=== PATIENT | male | born 1955 | race Asian ===

== ENCOUNTER 2017-06-30 09:32 | Emergency (ER) | payer OTHER ==
[~2017-06-30] VITALS: Ht 170.2 cm; Wt 74.5 kg
[2017-06-30] MEDS ORDERED: LISI-660 PO (09:46)
[2017-06-30] MEDS ORDERED: ASPI81 PO (09:46)
[2017-06-30] MEDS ORDERED: TICA90TA PO (09:46)
[2017-06-30] MEDS ORDERED: METF500T4 PO (09:46)
[2017-06-30 09:47] LABS: GLUCOSE,POINT OF CARE 128 MG/DL (70-110)
[2017-06-30 11:19] VITALS: BP 108/67
[2017-06-30 11:29] LABS: BASOPHILS % (AUTO) 1.2 % (0.0-2.0); EOSINOPHILS # (AUTO) 0.51 K/uL (0.00-0.70); EOSINOPHILS % (AUTO) 6.11 % (1.0-6.0); HEMATOCRIT 35.6 % (41-53); HEMOGLOBIN 11.8 g/dL (13.5-17.5); LYMPHOCYTES % (AUTO) 24.2 % (22.0-44.0); MEAN CORPUSCULAR VOLUME 94 fL (80-100); MONOCYTES # (AUTO) 0.7 K/uL (0.1-1.0); MONOCYTES % (AUTO) 8.3 % (2.0-9.0); NEUTROPHILS % (AUTO) 60.2 % (40.0-70.0); PLATELET COUNT (AUTO) 244 K/uL (150-450); RED BLOOD CELL COUNT(AUTO) 3.79 MIL/uL (4.50-5.90); RED CELL DISTRIBUTION WIDTH 14.2 % (11.5-14.5); WHITE BLOOD COUNT (AUTO) 8.3 K/uL (4.5-11.0)
[2017-06-30 11:38] LABS: CALCIUM, TOTAL 9.3 mg/dL (8.8-10.5); CREATININE 1.99 mg/dL (0.60-1.30); POTASSIUM 4.6 mmol/L (3.5-5.1)
[2017-06-30 11:44] LABS: ALBUMIN 3.9 g/dL (3.4-5.0); BILIRUBIN,TOTAL 0.5 mg/dL (0.1-1.0)
[2017-06-30 11:47] LABS: LACTIC ACID 0.9 mmol/L (0.4-2.0)
== END 2017-06-30 12:45 | disposition home or self-care (01) ==
LOC: EMS 09:35
DX: J06.9 Acute upper respiratory infection, unspecified (principal); E11.9 Type 2 diabetes mellitus without complications; E78.00 Pure hypercholesterolemia, unspecified; I10 Essential (primary) hypertension; F17.210 Nicotine dependence, cigarettes, uncomplicated; Z79.82 Long term (current) use of aspirin
CPT/HCPCS: 82962; 83605; 87040; 99285; 99406

== ENCOUNTER 2019-06-13 12:37 | Inpatient (IN) | payer MEDICARE, OTHER ==
[~2019-06-13] VITALS: Ht 167.6 cm; Wt 63.8 kg
[~2019-06-13 12:37] MED LIST: ASPI81 PO; LISI-660 PO; METF-960 PO; TICA90TA PO
[2019-06-13] MEDS ORDERED: [UNRECOGNIZED DRUG - REMARK] SQ (13:07)
[2019-06-13 13:09] LABS: GLUCOSE,POINT OF CARE 574 MG/DL (70-110)
[2019-06-13 14:08] LABS: BASOPHILS % (AUTO) 0.5 % (0.0-2.0); EOSINOPHILS % (AUTO) 4.3 % (1.0-6.0); HEMATOCRIT 43.2 % (41-53); HEMOGLOBIN 14.5 g/dL (13.5-17.5); LYMPHOCYTES # (AUTO) 1.7 K/uL (1.0-4.8); LYMPHOCYTES % (AUTO) 28.4 % (22.0-44.0); MEAN CORPUSCULAR HEMOGLOBIN 32.4 pg (26.0-34.0); MEAN CORPUSCULAR HGB CONC 33.5 G/dL (31.0-37.0); MEAN CORPUSCULAR VOLUME 97 fL (80-100); MONOCYTES # (AUTO) 0.7 K/uL (0.1-1.0); MONOCYTES % (AUTO) 11.5 % (2.0-9.0); NEUTROPHILS # (AUTO) 3.3 K/uL (1.8-7.7); NEUTROPHILS % (AUTO) 55.3 % (40.0-70.0); PLATELET COUNT (AUTO) 206 K/uL (150-450); RED BLOOD CELL COUNT(AUTO) 4.47 MIL/uL (4.50-5.90); RED CELL DISTRIBUTION WIDTH 12.8 % (11.5-14.5)
[2019-06-13] MEDS ORDERED: ONDANSETRON HCL 4 MG/2 ML VIAL IVP ONE (14:15)
[2019-06-13] MEDS ORDERED: SODIUM CHLORIDE 0.9% 2,000 ML IV ONE (14:15)
[2019-06-13] MEDS ORDERED: INSULIN REGULAR, HUMAN 100 UNITS/ML IVP ONE (14:15)
[2019-06-13 14:29] LABS: ALANINE AMINOTRANSFERASE 14 U/L (12-78); ALBUMIN 3.5 g/dL (3.4-5.0); ALKALINE PHOSPHATASE 153 U/L (46-116); ANION GAP 11 mmol/L (8-16); ASPARTATE AMINOTRANSFERASE 14 U/L (15-37); BILIRUBIN,TOTAL 0.5 mg/dL (0.1-1.0); CALCIUM, TOTAL 9.5 mg/dL (8.8-10.5); CARBON DIOXIDE 27 mmol/L (22-29); CHLORIDE 93 mmol/L (98-107); CREATININE 2.18 mg/dL (0.60-1.30); GLOMERULAR FILTR. RATE CALC 31 mL/min (>60); LIPASE 364 U/L (73-393); POTASSIUM 5.5 mmol/L (3.5-5.1); SODIUM SERUM 131 mmol/L (136-145); TOTAL PROTEIN, SERUM 7.9 g/dL (6.4-8.2); UREA NITROGEN, BLOOD 34 mg/dL (7-18)
[2019-06-13 14:34] LABS: GLUCOSE,RANDOM 582 mg/dL (70-110)
[2019-06-13 14:40] LABS: ACETONE,BLOOD NEGATIVE (NEGATIVE)
[2019-06-13] MEDS ORDERED: ONDANSETRON HCL 4 MG/2 ML VIAL IVP PRN ×2 (14:45→20:30)
[2019-06-13] MEDS ORDERED: ACETAMINOPHEN 325 MG TABLET PO PRN ×2 (14:45→20:30)
[2019-06-13] MEDS ORDERED: 0.9% SODIUM CHLORIDE 10 ML SYRINGE IVP PRN ×2 (14:45→20:30)
[2019-06-13 15:10] LABS: GLUCOSE,POINT OF CARE 367 MG/DL (70-110)
[2019-06-13 16:00] VITALS: BP 152/85
[2019-06-13] MEDS ORDERED: INSULIN LISPRO 100 UNITS/ML SQ PRN (17:30)
[2019-06-13] MEDS ORDERED: DEXTROSE 50%-WATER 25 GM/50 ML SYRINGE IVP PRN ×2 (17:30→20:30)
[2019-06-13 17:55] LABS: GLUCOMETER DEV NAME(LOC) 6N.1; GLUCOSE,POINT OF CARE 299 MG/DL (70-110)
[2019-06-13 19:15] VITALS: BP 127/80
[2019-06-13] MEDS ORDERED: ZOLPIDEM TARTRATE 5 MG TABLET PO PRN (20:30)
[2019-06-13] MEDS: ASPIRIN 81 MG CHEWABLE TABLET PO SCH (21:13)
[2019-06-13] MEDS: PANTOPRAZOLE SODIUM 40 MG DR TABLET PO SCH (21:14)
[2019-06-13] MEDS: TICAGRELOR 90 MG TABLET PO SCH (21:14)
[2019-06-13] MEDS: LISINOPRIL 5 MG TABLET PO SCH (21:14)
[2019-06-13] MEDS: INSULIN LISPRO 100 UNITS/ML SQ PRN (21:21)
[2019-06-13] MEDS: INSULIN GLARGINE,HUM.REC.ANLOG 100 UNITS/ML SQ SCH (21:22)
[2019-06-13] MEDS: SODIUM CHLORIDE 0.9% 1,000 ML IV SCH (22:20)
[2019-06-13 22:35] LABS: GLUCOMETER DEV NAME(LOC) 6N.1; GLUCOSE,POINT OF CARE 210 MG/DL (70-110)
[2019-06-13 23:15] VITALS: BP 131/81
[2019-06-13] MEDS: HEPARIN SODIUM,PORCINE 5,000 UNITS/ML VIAL SQ SCH (23:37)
[2019-06-14 04:09] VITALS: BP 118/61
[2019-06-14] MEDS: INSULIN LISPRO 100 UNITS/ML SQ PRN ×4 (05:50→20:54)
[2019-06-14 06:19] LABS: BASOPHILS % (AUTO) 0.7 % (0.0-2.0); EOSINOPHILS % (AUTO) 6.8 % (1.0-6.0); HEMATOCRIT 37.1 % (41-53); HEMOGLOBIN 12.4 g/dL (13.5-17.5); LYMPHOCYTES # (AUTO) 2.3 K/uL (1.0-4.8); LYMPHOCYTES % (AUTO) 30.8 % (22.0-44.0); MEAN CORPUSCULAR HEMOGLOBIN 32.2 pg (26.0-34.0); MEAN CORPUSCULAR HGB CONC 33.4 G/dL (31.0-37.0); MEAN CORPUSCULAR VOLUME 96 fL (80-100); MONOCYTES # (AUTO) 0.6 K/uL (0.1-1.0); MONOCYTES % (AUTO) 7.8 % (2.0-9.0); NEUTROPHILS % (AUTO) 53.9 % (40.0-70.0); PLATELET COUNT (AUTO) 175 K/uL (150-450); RED BLOOD CELL COUNT(AUTO) 3.86 MIL/uL (4.50-5.90); RED CELL DISTRIBUTION WIDTH 12.5 % (11.5-14.5)
[2019-06-14 06:24] LABS: HEMOGLOBIN A1C 12.8 % (4.5-6.2)
[2019-06-14 06:36] LABS: GLUCOMETER DEV NAME(LOC) 6N.1; GLUCOSE,POINT OF CARE 226 MG/DL (70-110)
[2019-06-14 06:43] LABS: CALCIUM, TOTAL 8.5 mg/dL (8.8-10.5); CHOL/HDL RATIO 7.2 (4.2-7.3); CREATININE 1.71 mg/dL (0.60-1.30); MAGNESIUM 1.7 mg/dL (1.80-2.40)
[2019-06-14] MEDS: HEPARIN SODIUM,PORCINE 5,000 UNITS/ML VIAL SQ SCH ×3 (08:01→23:53)
[2019-06-14] MEDS: PANTOPRAZOLE SODIUM 40 MG DR TABLET PO SCH (08:01)
[2019-06-14] MEDS: LISINOPRIL 5 MG TABLET PO SCH (08:01)
[2019-06-14] MEDS: ASPIRIN 81 MG CHEWABLE TABLET PO SCH (08:01)
[2019-06-14] MEDS: SODIUM CHLORIDE 0.9% 1,000 ML IV SCH ×2 (08:03→20:38)
[2019-06-14 08:08] VITALS: BP 125/72
[2019-06-14] MEDS: TICAGRELOR 90 MG TABLET PO SCH ×2 (08:36→20:39)
[2019-06-14] MEDS ORDERED: MAGNESIUM SULFATE 2 GM/WATER 50 ML IV ONE (10:45)
[2019-06-14 11:31] VITALS: BP 134/81
[2019-06-14 12:31] LABS: GLUCOMETER DEV NAME(LOC) 6N.1; GLUCOSE,POINT OF CARE 226 MG/DL (70-110)
[2019-06-14 15:45] VITALS: BP 141/94
[2019-06-14 19:00] VITALS: BP 136/85
[2019-06-14] MEDS: ATORVASTATIN CALCIUM 10 MG TABLET PO SCH (20:39)
[2019-06-14] MEDS: INSULIN GLARGINE,HUM.REC.ANLOG 100 UNITS/ML SQ SCH (20:54)
[2019-06-14 21:35] LABS: GLUCOMETER DEV NAME(LOC) 6N.1; GLUCOSE,POINT OF CARE 239 MG/DL (70-110)
[2019-06-14 21:35] LABS: GLUCOMETER DEV NAME(LOC) 6N.1; GLUCOSE,POINT OF CARE 275 MG/DL (70-110)
[2019-06-15 00:12] VITALS: BP 132/78
[2019-06-15 01:46] LABS: CREATININE,URINE 75.4 mg/dL (30.0-125.0)
[2019-06-15 01:47] LABS: CREATININE,SERUM FOR CRCL 1.71 mg/dL (0.60-1.30); TPROTEIN TIMED,URINE 70 mg/dL
[2019-06-15 01:48] LABS: COLLECTION TIME,URINE 24 HR; TPROTEIN URINE, 24HRS COLL 1400 mg/24Hr (0-165)
[2019-06-15] MEDS: SODIUM CHLORIDE 0.9% 1,000 ML IV SCH ×3 (02:52→23:23)
[2019-06-15 04:00] VITALS: BP 147/80
[2019-06-15 06:17] LABS: BASOPHILS % (AUTO) 0.8 % (0.0-2.0); HEMATOCRIT 38.2 % (41-53); HEMOGLOBIN 12.7 g/dL (13.5-17.5); LYMPHOCYTES # (AUTO) 2.7 K/uL (1.0-4.8); LYMPHOCYTES % (AUTO) 39.3 % (22.0-44.0); MEAN CORPUSCULAR HGB CONC 33.4 G/dL (31.0-37.0); MEAN CORPUSCULAR VOLUME 96 fL (80-100); MONOCYTES # (AUTO) 0.6 K/uL (0.1-1.0); MONOCYTES % (AUTO) 8.9 % (2.0-9.0); NEUTROPHILS # (AUTO) 2.8 K/uL (1.8-7.7); PLATELET COUNT (AUTO) 178 K/uL (150-450); RED BLOOD CELL COUNT(AUTO) 3.99 MIL/uL (4.50-5.90); RED CELL DISTRIBUTION WIDTH 12.5 % (11.5-14.5)
[2019-06-15 06:36] LABS: ALBUMIN 2.7 g/dL (3.4-5.0); BILIRUBIN,TOTAL 0.3 mg/dL (0.1-1.0); CREATININE 1.56 mg/dL (0.60-1.30); POTASSIUM 3.7 mmol/L (3.5-5.1); TOTAL PROTEIN, SERUM 6.4 g/dL (6.4-8.2)
[2019-06-15] MEDS: INSULIN LISPRO 100 UNITS/ML SQ PRN ×4 (06:43→20:26)
[2019-06-15] MEDS: ASPIRIN 81 MG CHEWABLE TABLET PO SCH (07:58)
[2019-06-15] MEDS: HEPARIN SODIUM,PORCINE 5,000 UNITS/ML VIAL SQ SCH ×3 (07:58→23:22)
[2019-06-15] MEDS: LISINOPRIL 5 MG TABLET PO SCH (07:58)
[2019-06-15] MEDS: PANTOPRAZOLE SODIUM 40 MG DR TABLET PO SCH (07:58)
[2019-06-15] MEDS: TICAGRELOR 90 MG TABLET PO SCH ×2 (07:58→20:18)
[2019-06-15 08:02] VITALS: BP 137/86
[2019-06-15 12:14] VITALS: BP 140/86
[2019-06-15 19:06] LABS: GLUCOMETER DEV NAME(LOC) 6N.1; GLUCOSE,POINT OF CARE 155 MG/DL (70-110)
[2019-06-15 19:06] LABS: GLUCOMETER DEV NAME(LOC) 6N.1; GLUCOSE,POINT OF CARE 296 MG/DL (70-110)
[2019-06-15 19:06] LABS: GLUCOMETER DEV NAME(LOC) 6N.1; GLUCOSE,POINT OF CARE 293 MG/DL (70-110)
[2019-06-15 20:17] VITALS: BP 123/65
[2019-06-15] MEDS: ATORVASTATIN CALCIUM 10 MG TABLET PO SCH (20:18)
[2019-06-15] MEDS: INSULIN GLARGINE,HUM.REC.ANLOG 100 UNITS/ML SQ SCH (20:26)
[2019-06-15 21:20] LABS: GLUCOMETER DEV NAME(LOC) 6N.1; GLUCOSE,POINT OF CARE 229 MG/DL (70-110)
[2019-06-15 23:38] VITALS: BP 149/76
[2019-06-16 05:05] VITALS: BP 143/93
[2019-06-16] MEDS: INSULIN LISPRO 100 UNITS/ML SQ PRN ×2 (05:51→11:47)
[2019-06-16 06:45] LABS: GLUCOMETER DEV NAME(LOC) 6N.1; GLUCOSE,POINT OF CARE 156 MG/DL (70-110)
[2019-06-16 07:02] LABS: BASOPHILS % (AUTO) 0.7 % (0.0-2.0); HEMATOCRIT 37.9 % (41-53); HEMOGLOBIN 12.7 g/dL (13.5-17.5); LYMPHOCYTES # (AUTO) 2.5 K/uL (1.0-4.8); LYMPHOCYTES % (AUTO) 36.6 % (22.0-44.0); MEAN CORPUSCULAR HEMOGLOBIN 32.2 pg (26.0-34.0); MEAN CORPUSCULAR HGB CONC 33.6 G/dL (31.0-37.0); MEAN CORPUSCULAR VOLUME 96 fL (80-100); MONOCYTES # (AUTO) 0.6 K/uL (0.1-1.0); MONOCYTES % (AUTO) 9.4 % (2.0-9.0); NEUTROPHILS % (AUTO) 44.3 % (40.0-70.0); PLATELET COUNT (AUTO) 190 K/uL (150-450); RED BLOOD CELL COUNT(AUTO) 3.96 MIL/uL (4.50-5.90); RED CELL DISTRIBUTION WIDTH 12.6 % (11.5-14.5)
[2019-06-16 07:22] LABS: CALCIUM, TOTAL 9.3 mg/dL (8.8-10.5); CREATININE 1.66 mg/dL (0.60-1.30); POTASSIUM 3.9 mmol/L (3.5-5.1)
[2019-06-16 07:46] VITALS: BP 136/85
[2019-06-16] MEDS: HEPARIN SODIUM,PORCINE 5,000 UNITS/ML VIAL SQ SCH (08:09)
[2019-06-16] MEDS: LISINOPRIL 5 MG TABLET PO SCH (08:10)
[2019-06-16] MEDS: PANTOPRAZOLE SODIUM 40 MG DR TABLET PO SCH (08:10)
[2019-06-16] MEDS: TICAGRELOR 90 MG TABLET PO SCH (08:10)
[2019-06-16] MEDS: ASPIRIN 81 MG CHEWABLE TABLET PO SCH (08:10)
[2019-06-16] MEDS: SODIUM CHLORIDE 0.9% 1,000 ML IV SCH (09:03)
[2019-06-16 11:41] VITALS: BP 137/82
[2019-06-16 13:01] LABS: GLUCOMETER DEV NAME(LOC) 6N.1; GLUCOSE,POINT OF CARE 187 MG/DL (70-110)
[2019-06-16] MEDS ORDERED: ATOR20TA86 PO (14:54)
[2019-06-16] MEDS ORDERED: INSLAN SQ (14:55)
[2019-06-16] MEDS ORDERED: INSU100V SQ (14:56)
== END 2019-06-16 13:35 | disposition home or self-care (01) | DRG 637 ==
LOC: EMS 12:38 → 6N 15:50
PROVIDERS: ADMIT Internal Medicine; ATTEND Internal Medicine
DX: E11.65 Type 2 diabetes mellitus with hyperglycemia (principal); N17.0 Acute kidney failure with tubular necrosis; E78.00 Pure hypercholesterolemia, unspecified; E87.5 Hyperkalemia; I10 Essential (primary) hypertension; Z87.891 Personal history of nicotine dependence; Z91.14 Patient's other noncompliance with medication regimen; Z79.82 Long term (current) use of aspirin; Z79.4 Long term (current) use of insulin; Z79.899 Other long term (current) drug therapy
CPT/HCPCS: 76770; 81050; 82575; 83036; 83605; 83735; 84156; 93005; 93971; G0480; J1644; J1815; J2405; J3475; J7030

== ENCOUNTER 2019-06-27 12:11 | Emergency (ER) | payer MEDICARE ==
[~2019-06-27] VITALS: Ht 170.2 cm; Wt 63.6 kg
[~2019-06-27 12:11] MED LIST changes: +ATOR20TA86 PO; +INSLAN SQ; +INSU100V SQ; -METF-960 PO
[2019-06-27 12:46] LABS: GLUCOSE,POINT OF CARE 259 MG/DL (70-110)
[2019-06-27 14:43] LABS: APPEARANCE,URINE CLEAR (CLEAR); BILIRUBIN,URINE NEGATIVE (NEGATIVE); GLUCOSE, URINE (UA) >=1000 mg/dL (NEGATIVE); KETONES,URINE NEGATIVE (NEGATIVE); LEUKOCYTE ESTERASE ,URINE NEGATIVE (NEGATIVE); NITRATE,URINE NEGATIVE (NEGATIVE); OCCULT BLOOD,URINE TRACE (NEGATIVE); PH,URINE 5.5 (5.0-8.0); PROTEIN,URINE SEE CONFIRM (NEGATIVE); UROBILINOGEN,URINE 0.2 mg/dL (<=1.0)
[2019-06-27 14:52] LABS: BACTERIA,URINE None Seen /HPF (None Seen); RBC,URINE None Seen /HPF (0-2); SQUAMOUS EPITHELIAL CELL,UR Few /LPF (None Seen); SULFOSALICYLIC ACID,URINE 1+ (Negative); WBC,URINE 0-2 /HPF (0-5)
[2019-06-27] MEDS ORDERED: SODIUM CHLORIDE 0.9% 1,000 ML IV ONE (15:00)
[2019-06-27 15:01] LABS: BASOPHILS % (AUTO) 0.6 % (0.0-2.0); HEMATOCRIT 41.6 % (41-53); HEMOGLOBIN 14.1 g/dL (13.5-17.5); LYMPHOCYTES # (AUTO) 2.3 K/uL (1.0-4.8); LYMPHOCYTES % (AUTO) 34.1 % (22.0-44.0); MEAN CORPUSCULAR HEMOGLOBIN 31.7 pg (26.0-34.0); MEAN CORPUSCULAR HGB CONC 33.8 G/dL (31.0-37.0); MEAN CORPUSCULAR VOLUME 94 fL (80-100); MONOCYTES # (AUTO) 0.6 K/uL (0.1-1.0); MONOCYTES % (AUTO) 8.2 % (2.0-9.0); NEUTROPHILS # (AUTO) 3.5 K/uL (1.8-7.7); NEUTROPHILS % (AUTO) 51.1 % (40.0-70.0); PLATELET COUNT (AUTO) 275 K/uL (150-450); RED BLOOD CELL COUNT(AUTO) 4.43 MIL/uL (4.50-5.90); RED CELL DISTRIBUTION WIDTH 12.5 % (11.5-14.5)
[2019-06-27 15:21] LABS: CALCIUM, TOTAL 9.9 mg/dL (8.8-10.5); CREATININE 1.55 mg/dL (0.60-1.30); POTASSIUM 4.5 mmol/L (3.5-5.1)
[2019-06-27 15:23] LABS: ALBUMIN 3.7 g/dL (3.4-5.0); BILIRUBIN,TOTAL 0.4 mg/dL (0.1-1.0); TOTAL PROTEIN, SERUM 8.5 g/dL (6.4-8.2)
[2019-06-27 16:16] LABS: GLUCOSE,POINT OF CARE 112 MG/DL (70-110)
[2019-06-27 16:24] VITALS: BP 131/86
== END 2019-06-27 16:24 | disposition home or self-care (01) ==
LOC: EMS 12:12
DX: E11.65 Type 2 diabetes mellitus with hyperglycemia (principal); E87.1 Hypo-osmolality and hyponatremia; E87.8 Other disorders of electrolyte and fluid balance, not elsewhere classified; E11.22 Type 2 diabetes mellitus with diabetic chronic kidney disease; I12.9 Hypertensive chronic kidney disease with stage 1 through stage 4 chronic kidney disease, or unspecified chronic kidney disease; N18.9 Chronic kidney disease, unspecified; F17.210 Nicotine dependence, cigarettes, uncomplicated; Z79.899 Other long term (current) drug therapy; Z79.4 Long term (current) use of insulin; Z79.82 Long term (current) use of aspirin
CPT/HCPCS: 36415; 80053; 81001; 82962; 85025; 96360; 99283; J7030; 82948

== ENCOUNTER 2019-07-13 10:42 | Emergency (ER) | payer MEDICARE ==
[~2019-07-13] VITALS: Ht 170.2 cm; Wt 63.6 kg
[2019-07-13 13:10] LABS: BASOPHILS % (AUTO) 0.7 % (0.0-2.0); EOSINOPHILS % (AUTO) 4.7 % (1.0-6.0); HEMATOCRIT 39.1 % (41-53); LYMPHOCYTES # (AUTO) 1.6 K/uL (1.0-4.8); LYMPHOCYTES % (AUTO) 26.8 % (22.0-44.0); MEAN CORPUSCULAR HEMOGLOBIN 31.3 pg (26.0-34.0); MEAN CORPUSCULAR HGB CONC 33.1 G/dL (31.0-37.0); MEAN CORPUSCULAR VOLUME 95 fL (80-100); MONOCYTES # (AUTO) 0.4 K/uL (0.1-1.0); MONOCYTES % (AUTO) 6.9 % (2.0-9.0); NEUTROPHILS # (AUTO) 3.6 K/uL (1.8-7.7); NEUTROPHILS % (AUTO) 60.9 % (40.0-70.0); PLATELET COUNT (AUTO) 229 K/uL (150-450); RED BLOOD CELL COUNT(AUTO) 4.14 MIL/uL (4.50-5.90); RED CELL DISTRIBUTION WIDTH 12.3 % (11.5-14.5)
[2019-07-13 13:33] LABS: ALANINE AMINOTRANSFERASE 18 U/L (12-78); ALBUMIN 3.1 g/dL (3.4-5.0); ALKALINE PHOSPHATASE 172 U/L (46-116); ANION GAP 10 mmol/L (8-16); ASPARTATE AMINOTRANSFERASE 15 U/L (15-37); BILIRUBIN,TOTAL 0.4 mg/dL (0.1-1.0); CALCIUM, TOTAL 8.9 mg/dL (8.8-10.5); CARBON DIOXIDE 25 mmol/L (22-29); CHLORIDE 91 mmol/L (98-107); GLOMERULAR FILTR. RATE CALC 39 mL/min (>60); POTASSIUM 4.4 mmol/L (3.5-5.1); SODIUM SERUM 126 mmol/L (136-145); TOTAL PROTEIN, SERUM 7.2 g/dL (6.4-8.2); UREA NITROGEN, BLOOD 28 mg/dL (7-18)
[2019-07-13 13:35] LABS: GLUCOSE,RANDOM 682 mg/dL (70-110)
[2019-07-13 13:36] LABS: ACETONE,BLOOD TRACE (NEGATIVE)
[2019-07-13] MEDS ORDERED: SODIUM CHLORIDE 0.9% 1,000 ML IV ONE ×2 (13:45→14:45)
[2019-07-13] MEDS ORDERED: INSULIN REGULAR, HUMAN 100 UNITS/ML IVP ONE (14:45)
[2019-07-13 15:23] LABS: APPEARANCE,URINE CLEAR (CLEAR); BILIRUBIN,URINE NEGATIVE (NEGATIVE); GLUCOSE, URINE (UA) >=1000 mg/dL (NEGATIVE); KETONES,URINE TRACE mg/dL (NEGATIVE); LEUKOCYTE ESTERASE ,URINE NEGATIVE (NEGATIVE); NITRATE,URINE NEGATIVE (NEGATIVE); OCCULT BLOOD,URINE NEGATIVE (NEGATIVE); PH,URINE 5.5 (5.0-8.0); PROTEIN,URINE TRACE (NEGATIVE); UROBILINOGEN,URINE 0.2 mg/dL (<=1.0)
[2019-07-13 15:52] LABS: BACTERIA,URINE None Seen /HPF (None Seen); RBC,URINE 0-2 /HPF (0-2); SQUAMOUS EPITHELIAL CELL,UR Few /LPF (None Seen); WBC,URINE None Seen /HPF (0-5)
[2019-07-13 16:01] LABS: GLUCOSE,POINT OF CARE 320 MG/DL (70-110)
[2019-07-13] MEDS ORDERED: LIDOCAINE 5% TRANSDERMAL PATCH TD ONE (16:15)
[2019-07-13 18:28] LABS: GLUCOSE,POINT OF CARE 258 MG/DL (70-110)
[2019-07-13 18:32] VITALS: BP 117/73
== END 2019-07-13 19:11 | disposition home or self-care (01) ==
LOC: EMS 10:43
DX: E11.65 Type 2 diabetes mellitus with hyperglycemia (principal); E78.00 Pure hypercholesterolemia, unspecified; I10 Essential (primary) hypertension; F17.210 Nicotine dependence, cigarettes, uncomplicated; Z79.82 Long term (current) use of aspirin; Z79.4 Long term (current) use of insulin; Z79.899 Other long term (current) drug therapy
CPT/HCPCS: 36415; 80053; 81001; 82009; 82962; 85025; 96361; 96374; 99285; J1815; J7030